=== PATIENT | female | born 1940 | race Caucasian/White ===

== ENCOUNTER 2017-10-04 05:36 | Emergency (ER) | payer MEDICARE, OTHER ==
[2017-10-04] MEDS ORDERED: Lactated Ringers 1,000 ML IV ONE (06:25)
[2017-10-04] MEDS ORDERED: Ondansetron 4 MG/2 ML SDV IVPUSH ONE (06:25)
[2017-10-04] MEDS ORDERED: fentaNYL 100 MCG/2 ML SDV IVPUSH ONE (06:25)
[2017-10-04] MEDS ORDERED: Sodium Chloride 0.9% 10 ML Syringe FLUSH PRN (06:25)
--- NOTE | 2017-10-04 06:28 | EDM.PDOC ---
<OfficerMorgan - Last Filed: 10/04/17 06:26> ED HPI GENERAL MEDICAL PROBLEM - General Chief Complaint: Abdominal Pain Stated Complaint: VOMITING Time Seen by Provider: 10/04/17 06:21 Source of Information: Reports: Patient, Family, RN Notes Reviewed History Limitations: Reports: No Limitations - History of Present Illness INITIAL COMMENTS - FREE TEXT/NARRATIVE: 77-year-old female presents to the emergency department day complaint of abdominal pain, she states the pain started about 1 this morning nausea and vomiting pain is predominantly in the right lower quadrant, she still passing gas and no other members in the family are ill no history of abdominal surgeries Abdominal Pain Score (Numeric/FACES): 8 - Related Data Allergies Allergy/AdvReac Type Severity Reaction Status Date / Time Sulfa (Sulfonamide Allergy Shortness Verified 10/04/17 06:02 Antibiotics) of Breath Home Meds: Home Meds Losartan Potassium 1 tab PO DAILY 10/04/17 [History] Metoprolol Succinate [Toprol Xl] 1 tab PO DAILY 10/04/17 [History] Triamterene/Hydrochlorothiazid [Triamterene-HCTZ 75-50 MG] 1 tab PO DAILY [History] Past Medical History HEENT History: Reports: Cataract, Impaired Vision Cardiovascular History: Reports: Hypertension Genitourinary History: Reports: Renal Calculus [employer] History: Reports: Oncologic (Cancer) History: Reports: Breast - Infectious Disease History Infectious Disease History: Reports: Chicken Pox, Mumps - Past Surgical History HEENT Surgical History: Reports: Cataract Surgery Female Surgical History: Reports: Mastectomy Social & Family History - Family History Family Medical History: Noncontributory - Tobacco Use Smoking Status *Q: Never Smoker - Caffeine Use Caffeine Use: Reports: Coffee - Recreational Drug Use Recreational Drug Use: No ED ROS GENERAL - Review of Systems Review Of Systems: See Below Constitutional: Denies: Fever, Chills HEENT: Reports: No Symptoms Respiratory: Reports: No Symptoms Cardiovascular: Reports: No Symptoms GI/Abdominal: Reports: Abdominal Pain, Flatus, Nausea, Vomiting. Denies: Constipation, Diarrhea : Reports: No Symptoms Musculoskeletal: Reports: No Symptoms Skin: Reports: No Symptoms Neurological: Reports: No Symptoms ED EXAM, GI/ABD - Physical Exam Exam: See Below Text/Narrative:: General: Female, ill-appearing, alert and oriented x3 HEENT: head is atraumatic normocephalic, eyes pupils equal round reactive to light, sclera clear no conjunctivitis appreciated. Ears tympanic membranes clear and washburn landmarks and light reflex are present bilaterally canals are clear. Nose no septal deviation, nares are clear, no blood present. Mouth mucosa is moist and pink no erythema or exudate noted in soft palate, tongue is midline uvula is midline , dentition is intact. Neck: Supple no thyromegaly no tracheal deviation. Nodes: Cervical nodes subclavicular nodes nontender no palpable lymphadenopathy noted. Lungs: clear to auscultation bilaterally with symmetrical respirations, no adventitious noise appreciated. CV: Regular rate and rhythm S1 and S2 appreciated no murmurs rubs or gallops noted. Abdomen: Soft, nontender, no palpable masses or organomegaly appreciated, no distention no guarding bowel sounds are present, . Neuro: Cranial nerves II through XII grossly intact Skin: Warm and dry, intact Extremities: No lower extremity edema appreciated, pedal pulse is +2. Course - Vital Signs Last Recorded V/S: Last Vital Signs Temp 96.0 F 10/04/17 09:05 Pulse 90 10/04/17 09:05 Resp 16 10/04/17 09:05 BP 153/75 H 10/04/17 09:05 Pulse Ox 98 10/04/17 09:05 - Orders/Labs/Meds Orders: Active Orders 24 hr Category Date Time Status Peripheral IV Care [RC] . DIRECTED Care 10/04/17 06:25 Active Abdomen Pelvis wo Cont [CT] Stat Exams 10/04/17 07:13 Taken UA W/MICROSCOPIC [URIN] Urgent Lab 10/04/17 06:25 Ordered Peripheral IV Insertion Adult [OM.PC] Urgent Oth 10/04/17 06:25 Ordered Labs: Laboratory Tests 10/04/17 10/04/17 10/04/17 Range/Units 06:25 06:33 06:33 WBC 14.2 H (4.5-11.0) K/uL RBC 4.40 (3.30-5.50) M/uL Hgb 12.8 (12.0-15.0) g/dL Hct 40.1 (36.0-48.0) % MCV 91 (80-98) fL MCH 29 (27-31) pg MCHC 32 (32-36) % Plt Count 297 (150-400) K/uL Neut % (Auto) 83 H (36-66) % Lymph % (Auto) 10 L (24-44) % [place] % (Auto) 5 (2-6) % Eos % (Auto) 1 L (2-4) % Baso % (Auto) 0 (0-1) % Sodium 138 L (140-148) mmol/L Potassium 4.0 (3.6-5.2) mmol/L Chloride 104 (100-108) mmol/L Carbon Dioxide 22 (21-32) mmol/L Anion Gap 16.0 H (5.0-14.0) mmol/L BUN 38 H (7-18) mg/dL Creatinine 1.8 H (0.6-1.0) mg/dL Est Cr Clr Drug Dosing 20.70 mL/min Estimated GFR (MDRD) 27 L (>60) Glucose 162 H (74-106) mg/dL Lactic Acid (0.4-2.0) mmol/L Calcium 9.6 (8.5-10.1) mg/dL Total Bilirubin 0.3 (0.2-1.0) mg/dL AST 16 (15-37) U/L ALT 20 (12-78) U/L Alkaline Phosphatase 129 H (46-116) U/L Total Protein 7.8 (6.4-8.2) g/dL Albumin 3.8 (3.4-5.0) g/dL Globulin 4.0 H (2.3-3.5) g/dL Albumin/Globulin Ratio 1.0 L (1.2-2.2) Lipase 239 (73-393) U/L Urine Color Yellow Urine Appearance Clear Urine pH 6.0 (4.5-8.0) Ur Specific [place] 1.010 (1.008-1.030) Urine Protein Negative (NEGATIVE) mg/dL Urine Glucose (UA) Normal (NEGATIVE) mg/dL Urine Ketones Negative (NEGATIVE) mg/dL Urine Occult Blood Large (NEGATIVE) Urine Nitrite Negative (NEGATIVE) Urine Bilirubin Negative (NEGATIVE) Urine Urobilinogen Normal (NORMAL) mg/dL Ur Leukocyte Esterase Large (NEGATIVE) Urine RBC 20-30 H (0-5) Urine WBC 20-30 H (0-5) Ur Epithelial Cells Not seen Amorphous Sediment Rare Urine Bacteria Not seen Urine Mucus Not seen 10/04/17 Range/Units 06:33 WBC (4.5-11.0) K/uL RBC (3.30-5.50) M/uL Hgb (12.0-15.0) g/dL Hct (36.0-48.0) % MCV (80-98) fL MCH (27-31) pg MCHC (32-36) % Plt Count (150-400) K/uL Neut % (Auto) (36-66) % Lymph % (Auto) (24-44) % [place] % (Auto) (2-6) % Eos % (Auto) (2-4) % Baso % (Auto) (0-1) % Sodium (140-148) mmol/L Potassium (3.6-5.2) mmol/L Chloride (100-108) mmol/L Carbon Dioxide (21-32) mmol/L Anion Gap (5.0-14.0) mmol/L BUN (7-18) mg/dL Creatinine (0.6-1.0) mg/dL Est Cr Clr Drug Dosing mL/min Estimated GFR (MDRD) (>60) Glucose (74-106) mg/dL Lactic Acid 1.3 (0.4-2.0) mmol/L Calcium (8.5-10.1) mg/dL Total Bilirubin (0.2-1.0) mg/dL AST (15-37) U/L ALT (12-78) U/L Alkaline Phosphatase (46-116) U/L Total Protein (6.4-8.2) g/dL Albumin (3.4-5.0) g/dL Globulin (2.3-3.5) g/dL Albumin/Globulin Ratio (1.2-2.2) Lipase (73-393) U/L Urine Color Urine Appearance Urine pH (4.5-8.0) Ur Specific [place] (1.008-1.030) Urine Protein (NEGATIVE) mg/dL Urine Glucose (UA) (NEGATIVE) mg/dL Urine Ketones (NEGATIVE) mg/dL Urine Occult Blood (NEGATIVE) Urine Nitrite (NEGATIVE) Urine Bilirubin (NEGATIVE) Urine Urobilinogen (NORMAL) mg/dL Ur Leukocyte Esterase (NEGATIVE) Urine RBC (0-5) Urine WBC (0-5) Ur Epithelial Cells Amorphous Sediment Urine Bacteria Urine Mucus Meds: Medications Discontinued Medications Generic Name Dose Route Start Last Admin Trade Name Sammie PRN Reason Stop Dose Admin Fentanyl 50 mcg 10/04/17 06:25 10/04/17 06:45 Sublimaze IVPUSH 10/04/17 06:26 50 mcg ONETIME ONE Administration Lactated Ringer's 1,000 mls @ 999 mls/hr 10/04/17 06:25 10/04/17 06:46 Ringers, Lactated IV 10/04/17 07:25 999 mls/hr BOLUS ONE Administration Ketorolac Tromethamine 30 mg 10/04/17 07:13 10/04/17 07:18 Toradol IVPUSH 10/04/17 07:14 30 mg ONETIME ONE Administration Ondansetron HCl 4 mg 10/04/17 06:25 10/04/17 06:40 Zofran IVPUSH 10/04/17 06:26 4 mg ONETIME ONE Administration Sodium Chloride 10 ml 10/04/17 06:25 10/04/17 06:40 Saline Flush FLUSH 10 ml ASDIRECTED PRN Administration Keep Vein Open Tamsulosin HCl 0.4 mg 10/04/17 09:01 10/04/17 09:04 Flomax PO 10/04/17 09:02 0.4 mg ONETIME ONE Administration Departure - Departure Disposition: Home, Self-Care 01 Clinical Impression: Renal colic on right side, Right nephrolithiasis - Discharge Information Instructions: Kidney Stones, [id number] Referrals: PCP,None [Primary Care Provider] - Forms: ED Department Discharge Care Plan Goals: Maintain normal hydration, diet and activity as tolerated. Use ketorolac one every 6-8 hours for pain, and add a hydrocodone every 3-4 hours as directed for extra pain control. Consider rechecking in the next 2-3 days if still having symptoms, or return sooner if worsening such as vomiting or uncontrolled pain despite medications. If symptoms go away and you feel fine, you should still recheck your kidney function in the next 2-3 weeks. Take labs from today with you to your recheck. - My Orders Last 24 Hours: My Active Orders 10/04/17 07:13 Abdomen Pelvis wo Cont [CT] Stat - Assessment/Plan Last 24 Hours: My Active Orders 10/04/17 07:13 Abdomen Pelvis wo Cont [CT] Stat <Pranav Swanson - Last Filed: 10/04/17 11:38> Course - Re-Assessments/Exams Free Text/Narrative Re-Assessment/Exam: 10/04/17 09:05 IMPRESSION 1. Right renal and ureteral calculi including a 1 x 0.3 cm calculus in the distal right ureter near the ureterovesical junction. Mild right hydroureteronephrosis. 2. Colonic diverticulosis. 3. Small hiatal hernia. CT confirmed the above findings. Patient was given 0.4 mg of oral Flomax. She had much better pain relief with the Toradol IV. 10/04/17 09:27 The patient was discharged nearly pain-free. She was given 10 additional doses of ketorolac to take 3 times a day if pain recurs, and 6 doses of hydrocodone for extra pain control. She is going to maintain normal hydration, and will recheck in the next 24-48 hours if not improving. She will return sooner if worsening. If she passes the stone and becomes asymptomatic, I'm still going to advise rechecking kidney function in the next 1-2 weeks. Departure - Departure Time of Disposition: 09:47 Condition: Good
[2017-10-04] MEDS ORDERED: Ketorolac 30 MG/ML SDV IVPUSH ONE (07:13)
[2017-10-04] MEDS ORDERED: Tamsulosin 0.4 MG Cap.ER PO ONE (09:01)
== END 2017-10-04 09:47 | disposition home or self-care (01) ==
LOC: JP.ED 05:36
DX: N13.2 Hydronephrosis with renal and ureteral calculous obstruction (principal); K57.30 Diverticulosis of large intestine without perforation or abscess without bleeding; K44.9 Diaphragmatic hernia without obstruction or gangrene; I10 Essential (primary) hypertension; Z88.2 Allergy status to sulfonamides; Z79.899 Other long term (current) drug therapy
CPT/HCPCS: 36415; 74176; 80053; 81001; 83605; 83690; 85025; 96361; 96374; 96375; 99283; 99284; A9270; J1885; J2405; J3010; J7050; J7120